=== PATIENT | male | born 1970 | race African-American/Black ===

== ENCOUNTER 2017-04-10 10:16 | Inpatient (IN) | payer OTHER ==
[2017-04-10 10:36] VITALS: BMI 30.8
--- NOTE | 2017-04-10 11:08 | HP ---
COWS - Scale Resting Pulse: 0= [place] 80 or Below Sweatin= Chills/Flushing Restless Observation: 1= Difficult to Sit Still Pupil Size: 1= Pupils >than Normal Bone or Joint Aches: 1= Mild Discomfort Runny Nose/ Eye Tearin= Nasal Congestion GI Upset > 30mins: 2= Nausea/Diarrhea Tremor Observation: 1= Tremor [place], Not Seen Yawning Observation: 1= 1-2x During Session Anxiety or Irritability: 2=Irritable/Anxious Goose Flesh Skin: 3=Piloerection COWS Score: 14 CIWA Score - CIWA Score Nausea/Vomitin Muscle Tremors: 3 Anxiety: 3 Agitation: 3 Paroxysmal Sweats: 3 Orientation: 0-Oriented Tacttile Disturbances: 0-None Auditory Disturbances: 0-None Visual Disturbances: 0-None Headache: 1-Very Mild CIWA-Ar Total Score: 16 Admission [facility] Chief Complaint: alcohol and heroin withdrawal sx Allergies/Adverse Reactions: Allergies Allergy/AdvReac Type Severity Reaction Status Date / Time No Known Allergies Allergy Verified 04/10/17 10:54 History of Present Illness: 46 yo m with h/o chronic alcoholism and opipod use diorder reports withdrwal sx when he deos not use requesting inpatiet tdetoxifcation. PMHX HTN not taking meds, no h/o Seziures or DTS, no SI at thsi teim, reports thirst, depression anxniety and insomnia and recent wt loss. Exam Limitations: No Limitations - Ebola screening Have you traveled outside of the country in the last 21 days: No Have you had contact with anyone from an Ebola affected area: No Have you been sick,other than usual withdrawal symptoms: No Do you have a fever: No - Review of Systems Constitutional: Chills, Diaphoresis, Night Sweats, Unintentional Wgt. Loss EENT: reports: Nose Congestion Respiratory: reports: Cough (smokers) Cardiac: reports: No Symptoms Reported GI: reports: Diarrhea, Nausea, Poor Appetite, Poor Fluid Intake, Indigestion, Abdominal cramping : reports: No Symptoms Reported Musculoskeletal: reports: Back Pain (withdrawal sx), Muscle Pain Integumentary: reports: Flushing, Rash (jock itch), Sweating Neuro: reports: Headache, Numbness, Paresthesia, Tremors, Weakness Endocrine: reports: Increased Thirst Hematology: reports: No Symptoms Reported Psychiatric: reports: Judgement Intact, Mood/Affect Appropiate, Orientated x3, Anxious, Depressed Other Systems: Reviewed and Negative Patient History - Patient Medical History Hx Anemia: No Hx Asthma: No Hx Chronic Obstructive Pulmonary Disease (COPD): No Hx Cancer: No Hx Cardiac Disorders: No Hx Congestive Heart Failure: No Hx Hypertension: Yes (NON COMPLIANT WITH MEDS.) Hx Hypercholesterolemia: No Hx Pacemaker: No HX Cerebrovascular Accident: No Hx Seizures: No Hx Diabetes: No Hx Gastrointestinal Disorders: No Hx Liver Disease: No Hx Genitourinary Disorders: No Hx Sexually Transmitted Disorders: No Hx Renal Disease (ESRD): No Hx Thyroid Disease: No Hx Human Immunodeficiency Virus (HIV): No Hx Hepatitis C: No Hx Depression: Yes Hx Suicide Attempt: No Hx Bipolar Disorder: No Hx Schizophrenia: No - Patient Surgical History Past Surgical History: No Anesthesia Reaction: No - PPD History Previous Implant?: Yes Documented Results: Negative w/o proof Implanted On Prior [facility] Admission?: No PPD to be Administered?: Yes - Reproductive History Patient is a Female of Child Bearing Age (11 -55 yrs old): No Patient : No - Smoking Cessation Smoking history: Current every day smoker Have you smoked in the past 12 months: Yes Aproximately how many cigarettes per day: 5 Hx Chewing Tobacco Use: No Initiated information on smoking cessation: Yes 'Breaking Loose' booklet given: 04/10/17 - Substance & Tx. History Hx Alcohol Use: Yes Hx Substance Use: Yes Substance Use Type: Alcohol, Heroin, Marijuana, Opiates Hx Substance Use Treatment: Yes ([facility], 2 months ago) - Substances Abused Heroin Route: Inhalation Frequency: Daily Amount used: 2 BAGS Age of first use: 17 Date of Last Use: 04/09/17 Alcohol Route: Oral Frequency: Daily Amount used: 1 PINT VODKA Age of first use: 10 Date of Last Use: 04/09/17 Crack Route: Smoking Frequency: Daily Amount used: 10 VIALS Age of first use: 11 Date of Last Use: 04/09/17 Family Disease History - Family Disease History Family History: Denies Admission Physical Exam BHS - Vital Signs Vital Signs: Vital Signs - 24 hr 04/10/17 10:25 Temperature 96.7 F L Pulse Rate 71 Respiratory 18 Rate Blood Pressure 150/84 - Physical General Appearance: Yes: Nourished, Appropriately Dressed, Disheveled, Mild Distress, Tremorous, Irritable, Sweating, Anxious HEENTM: Yes: EOMI, Hearing grossly Normal, Normocephalic, Normal Voice, LACHO, Pharynx Normal, Nasal Congestion, Rhinorrhea Respiratory: Yes: Within Normal Limits, Chest Non-Tender, Lungs Clear, Normal Breath Sounds, No Respiratory Distress, No Accessory Muscle Use Neck: Yes: Within Normal Limits, No masses,lesions,Nodules, Supple, Trachea in good position Breast: Yes: Breast Exam Deferred Cardiology: Yes: Within Normal Limits, Regular Rhythm, Regular Rate, S1, S2 Abdominal: Yes: Within Normal Limits, Normal Bowel Sounds, Non Tender, Flat, Soft, Increased Bowel Sounds Genitourinary: Yes: Within Normal Limits Back: Yes: Within Normal Limits, Normal Inspection Musculoskeletal: Yes: full range of Motion, Gait Steady, Pelvis Stable Extremities: Yes: Normal Capillary Refill, Normal Range of Motion, Non-Tender, Tremors 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, Fully Oriented, Alert, Motor Strength 5/5, Normal Response, Depressed Affect Integumentary: Yes: Normal Color, Warm, Diaphoresis, Moist, Rash (jock itch) Lymphatic: Yes: Within Normal Limits - Addiitonal Findings: withdrawal sx - Diagnostic (1) Alcohol dependence with uncomplicated withdrawal Current Visit: Yes Status: Acute (2) Opioid dependence with withdrawal Current Visit: Yes Status: Acute (3) Nicotine dependence Current Visit: Yes Status: Acute (4) Cocaine dependence Current Visit: Yes Status: Acute (5) Marijuana abuse Current Visit: Yes Status: Acute (6) Essential (primary) hypertension Current Visit: Yes Status: Acute (7) Dehydration Current Visit: Yes Status: Acute (8) Depression Current Visit: Yes Status: Acute (9) Jock itch Current Visit: Yes Status: Acute Cleared for Admission [facility] - Detox or Rehab [facility] Level of Care: Medically Managed Detox Regimen/Protocol: Methadone/Librium [facility] Breath Alcohol Content Breath Alcohol Content: 0 Urine Drug Screen - Results Drug Screen Negative: No Urine Drug Screen Results: THC-Marijuana, CECE-Cocaine, BZO-Benzodiazepines
[2017-04-10] MEDS ORDERED: hydrOXYzine PAMOATE 50 MG CAPSULE (FP) PO PRN (11:10)
[2017-04-10] MEDS ORDERED: MAGNESIUM CITRATE 300 ML BOTTLE PO PRN (11:10)
[2017-04-10] MEDS ORDERED: ACETAMINOPHEN 325 MG TABLET (FP) PO PRN (11:10)
[2017-04-10] MEDS ORDERED: IBUPROFEN 400 MG TABLET (FP) PO PRN (11:10)
[2017-04-10] MEDS ORDERED: MAG HYDROX/AL HYDROX/SIMETH 30 ML UNIT-DOSE CUP PO PRN (11:10)
[2017-04-10] MEDS ORDERED: MENTHOL/PHENOL 1 EACH UD MM PRN (11:10)
[2017-04-10] MEDS ORDERED: P-EPHED 60MG/TRIPROLIDI 2.5MG TABLET PO PRN (11:10)
[2017-04-10] MEDS ORDERED: MAGNESIUM HYDROX 2400MG/30ML ORAL SUSPENSION 30 ML CUP PO PRN (11:10)
[2017-04-10] MEDS ORDERED: chlordiazePOXIDE HCL 25 MG CAPSULE PO PRN (11:10)
[2017-04-10] MEDS ORDERED: LOPERAMIDE HCL 2 MG CAPSULE PO PRN (11:10)
[2017-04-10] MEDS ORDERED: NICOTINE POLACRILEX 2 MG GUM BUC PRN (11:10)
[2017-04-10] MEDS ORDERED: chlordiazePOXIDE HCL 25 MG CAPSULE PO ONE (11:42)
[2017-04-10] MEDS ORDERED: METHADONE HCL 10 MG TABLET (FOR DETOX USE ONLY) PO ONE ×2 (11:43→23:00)
[2017-04-10 13:18] LABS: HEMATOCRIT 38.2 % (35.4-49); HEMOGLOBIN 12.4 GM/dL (11.7-16.9); MCHC 32.4 g/dl (32.0-35.9); MEAN CELL VOLUME 95.5 fl (80-96); MEAN PLT VOLUME 9.3 fl (7.5-11.1); PLATELET COUNT 327 K/MM3 (134-434); RDW 13.9 % (11.9-15.9); WHITE BLOOD COUNT 4.9 K/mm3 (4.0-10.0)
--- NOTE | 2017-04-10 13:18 | CONSULT ---
[facility] Psychiatric Consult - Data Date of interview: 04/10/17 Admission source: [facility] Identifying data: First admission to [facility] for this 46 y/o AA male seeking detox treatment on for heroin,cocaine,marihuana and alcohol dependence.Patient is single,a father of one,domiciled,unemployed and supported on food stamps. Substance Abuse History: Confirmed by patient in this session.See details in current [facility] report : Smoking history: Current every day smoker. Have you smoked in the past 12 months: Yes. Aproximately how many cigarettes per day: 5. Hx Chewing Tobacco Use: No. Initiated information on smoking cessation: Yes. 'Breaking Loose' booklet given: 04/10/17. - Substance & Tx. History. Hx Alcohol Use: Yes. Hx Substance Use: Yes. Substance Use Type: Alcohol, Heroin, Marijuana, Opiates. Hx Substance Use Treatment: Yes ([facility], 2 months ago). - Substances Abused. Heroin. Route: Inhalation. Frequency: Daily. Amount used: 2 BAGS. Age of first use: 17. Date of Last Use: 04/09/17. Alcohol. Route: Oral. Frequency: Daily. Amount used: 1 PINT VODKA. Age of first use: 10. Date of Last Use: 04/09/17. Crack. Route: Smoking. Frequency: Daily. Amount used: 10 VIALS. Age of first use: 11. Date of Last Use: 04/09/17 Medical History: Hypertension. Psychiatric History: Patient denies. Physical/Sexual Abuse/Trauma History: Patient denies. Additional Comment: Urine Drug Screen Results: THC-Marijuana, CECE-Cocaine, BZO- Benzodiazepines.Noted. Mental Status Exam - Mental Status Exam Alert and Oriented to: Time, Place, Person Cognitive Function: Good Patient Appearance: Well Groomed Mood: Hopeful, Euthymic Affect: Appropriate, Normal Range Patient Behavior: Fatigued, Appropriate, Cooperative Speech Pattern: Clear, Appropriate Voice Loudness: Normal Thought Process: Intact, Goal Oriented Thought Disorder: Not Present Hallucinations: Denies Suicidal Ideation: Denies Homicidal Ideation: Denies Insight/Judgement: Poor Sleep: Well Appetite: Good Muscle strength/Tone: Normal Gait/Station: Normal Psychiatric Findings - Problem List ([place] 1, 2,3) (1) Opioid dependence with withdrawal Current Visit: Yes Status: Acute (2) Alcohol dependence with uncomplicated withdrawal Current Visit: Yes Status: Acute (3) Cocaine dependence Current Visit: Yes Status: Acute (4) Marijuana abuse Current Visit: Yes Status: Acute (5) Nicotine dependence Current Visit: Yes Status: Acute - Initial Treatment Plan Initial Treatment Plan: Psychoeducation and support.Detoxification protocol in effect.Orientation to unit.Daily monitoring of clinical course.
[2017-04-10 13:30] LABS: CHLORIDE 105 mmol/L (98-107); SODIUM 140 mmol/L (136-145)
--- NOTE | 2017-04-10 13:41 | EKG ---
Test Reason : Blood Pressure : / mmHG Vent. Rate : 065 BPM Atrial Rate : 065 BPM P-R Int : 166 ms QRS Dur : 102 ms QT Int : 408 ms P-R-T Axes : 073 043 -43 degrees QTc Int : 424 ms NORMAL SINUS RHYTHM SEPTAL INFARCT , AGE UNDETERMINED T WAVE ABNORMALITY, CONSIDER INFERIOR ISCHEMIA ABNORMAL ECG NO PREVIOUS ECGS AVAILABLE Confirmed by MD PHIL, PATEL ([id number]) on 04/10/2017 1:41:22 PM Referred By: Confirmed By:PATEL VILLARREAL MD
[2017-04-10] MEDS: amLODIPine BESYLATE 5 MG TABLET (FP) PO SCH (14:18)
[2017-04-10] MEDS: NICOTINE 14 MG/24 HOURS TOPICAL PATCH TD SCH (14:18)
[2017-04-10] MEDS: CLOTRIMAZOLE/BETAMET DIPROP 15 GM TUBE TP SCH ×2 (14:18→22:04)
[2017-04-10] MEDS: cloNIDine HCL 0.1 MG TABLET PO SCH ×2 (14:21→22:05)
[2017-04-10 15:19] LABS: ALBUMIN 3.9 g/dl (3.4-5.0); ALK PHOS 100 U/L (45-117); ANION GAP 7 (8-16); BILIRUBIN,TOTAL 0.7 mg/dL (0.2-1.0); BLOOD UREA NITROGEN 11 mg/dL (7-18); CALCIUM 8.9 mg/dL (8.5-10.1); CO2 28 mmol/L (21-32); CREATININE 1.1 mg/dL (0.7-1.3); GLUCOSE,RANDOM 113 mg/dL (74-106); SGPT/ALT 28 U/L (12-78); TOT PROT 7.6 g/dl (6.4-8.2)
[2017-04-10 15:21] LABS: POTASSIUM 4.1 mmol/L (3.5-5.1)
[2017-04-10 16:53] LABS: URINE APPEARANCE CLEAR; URINE BILIRUBIN NEGATIVE (NEGATIVE); URINE BLOOD NEGATIVE (NEGATIVE); URINE COLOR LTYELLOW; URINE GLUCOSE (UA) NEGATIVE (NEGATIVE); URINE KETONE NEGATIVE (NEGATIVE); URINE LEUK ESTERASE NEGATIVE (NEGATIVE); URINE NITRITE NEGATIVE (NEGATIVE); URINE PROTEIN NEGATIVE (NEGATIVE); URINE UROBILINOGEN NEGATIVE mg/dL (0.2-1.0)
[2017-04-10 17:13] LABS: SGOT/AST 27 U/L (15-37)
[2017-04-10] MEDS: chlordiazePOXIDE HCL 25 MG CAPSULE PO SCH ×2 (19:59→22:04)
[2017-04-10] MEDS: THIAMINE HCL 100 MG TABLET (FP) PO SCH (22:04)
[2017-04-11] MEDS: chlordiazePOXIDE HCL 25 MG CAPSULE PO SCH ×5 (05:52→23:42)
[2017-04-11] MEDS ORDERED: METHADONE HCL 10 MG TABLET (FOR DETOX USE ONLY) PO SCH (10:00)
[2017-04-11] MEDS: PRENATAL VITAMINS W/ FOLIC ACID TABLET (FP) PO SCH (10:11)
[2017-04-11] MEDS: amLODIPine BESYLATE 5 MG TABLET (FP) PO SCH (10:11)
[2017-04-11] MEDS: cloNIDine HCL 0.1 MG TABLET PO SCH ×2 (10:11→22:42)
[2017-04-11] MEDS: NICOTINE 14 MG/24 HOURS TOPICAL PATCH TD SCH (10:11)
[2017-04-11] MEDS: CLOTRIMAZOLE/BETAMET DIPROP 15 GM TUBE TP SCH ×2 (10:11→22:43)
--- NOTE | 2017-04-11 10:24 | EKG ---
Test Reason : Blood Pressure : / mmHG Vent. Rate : 069 BPM Atrial Rate : 069 BPM P-R Int : 172 ms QRS Dur : 082 ms QT Int : 374 ms P-R-T Axes : 072 039 -05 degrees QTc Int : 400 ms NORMAL SINUS RHYTHM SEPTAL INFARCT (CITED ON OR BEFORE 10-APR-2017) ABNORMAL ECG WHEN COMPARED WITH ECG OF 10-APR-2017 13:25, NO SIGNIFICANT CHANGE WAS FOUND Confirmed by FILIPE MARCOS MD ([id number]) on 04/11/2017 10:24:23 AM Referred By: Confirmed By:FILIPE MARCOS MD
--- NOTE | 2017-04-11 10:41 | PN ---
[facility] CIWA - CIWA Score Nausea/Vomitin-No Nausea/No Vomiting Muscle Tremors: 4-Moderate,w/Arms Extend Anxiety: 4-Mod. Anxious/Guarded Agitation: 4-Moderately Restless Paroxysmal Sweats: 1-Minimal Palms Moist Orientation: 0-Oriented Tacttile Disturbances: 3-Moderate Itch/Numb/Burn Auditory Disturbances: 0-None Visual Disturbances: 0-None Headache: 0-None Present CIWA-Ar Total Score: 16 BHS COWS - Scale Resting Pulse: 0= [place] 80 or Below Sweatin= Chills/Flushing Restless Observation: 3= Extraneous Movement Pupil Size: 0= Normal to Room Light Bone or Joint Aches: 4=Acute Joint/Muscle Pain Runny Nose/ Eye Tearin= Nasal Congestion GI Upset > 30mins: 1= Stomach Cramp Tremor Observation of Outstretched Hands: 2= Slight Tremor Visible Yawning Observation: 1= 1-2x During Session Anxiety or Irritability: 2=Irritable/Anxious Goose Flesh Skin: 0=Smooth Skin COWS Score: 15 [facility] Progress Note (SOAP) Subjective: ANXIETY,SWEATS,IRRITABILITY,FATIGUE,INTERMITTENT SLEP. Objective: 04/11/17 10:40 Vital Signs Temperature 98.1 F 04/11/17 09:04 Pulse Rate 78 04/11/17 09:04 Respiratory Rate 18 04/11/17 09:04 Blood Pressure 144/84 04/11/17 09:04 O2 Sat by Pulse Oximetry (%) Laboratory Last Values WBC 4.9 K/mm3 (4.0-10.0) 04/10/17 11:50 RBC 4.00 M/mm3 (4.00-5.60) 04/10/17 11:50 Hgb 12.4 GM/dL (11.7-16.9) 04/10/17 11:50 Hct 38.2 % (35.4-49) 04/10/17 11:50 MCV 95.5 fl (80-96) 04/10/17 11:50 MCH 31.0 pg (25.7-33.7) 04/10/17 11:50 MCHC 32.4 g/dl (32.0-35.9) 04/10/17 11:50 RDW 13.9 % (11.9-15.9) 04/10/17 11:50 Plt Count 327 K/MM3 (134-434) 04/10/17 11:50 MPV 9.3 fl (7.5-11.1) 04/10/17 11:50 Sodium 140 mmol/L (136-145) 04/10/17 11:50 Potassium 4.1 mmol/L (3.5-5.1) 04/10/17 11:50 Chloride 105 mmol/L (98-107) 04/10/17 11:50 Carbon Dioxide 28 mmol/L (21-32) 04/10/17 11:50 Anion Gap 7 (8-16) L 04/10/17 11:50 BUN 11 mg/dL (7-18) 04/10/17 11:50 Creatinine 1.1 mg/dL (0.7-1.3) 04/10/17 11:50 Creat Clearance w eGFR > 60 (>60) 04/10/17 11:50 Random Glucose 113 mg/dL (74-106) H 04/10/17 11:50 Calcium 8.9 mg/dL (8.5-10.1) 04/10/17 11:50 Total Bilirubin 0.7 mg/dL (0.2-1.0) 04/10/17 11:50 AST 27 U/L (15-37) 04/10/17 11:50 ALT 28 U/L (12-78) 04/10/17 11:50 Alkaline Phosphatase 100 U/L (45-117) 04/10/17 11:50 Total Protein 7.6 g/dl (6.4-8.2) 04/10/17 11:50 Albumin 3.9 g/dl (3.4-5.0) 04/10/17 11:50 Urine Color Ltyellow 04/10/17 15:30 Urine Appearance Clear 04/10/17 15:30 Urine pH 5.0 (5.0-8.0) 04/10/17 15:30 Ur Specific [place] 1.017 (1.001-1.035) 04/10/17 15:30 Urine Protein Negative (NEGATIVE) 04/10/17 15:30 Urine Glucose (UA) Negative (NEGATIVE) 04/10/17 15:30 Urine Ketones Negative (NEGATIVE) 04/10/17 15:30 Urine Blood Negative (NEGATIVE) 04/10/17 15:30 Urine Nitrite Negative (NEGATIVE) 04/10/17 15:30 Urine Bilirubin Negative (NEGATIVE) 04/10/17 15:30 Urine Urobilinogen Negative mg/dL (0.2-1.0) 04/10/17 15:30 Ur Leukocyte Esterase Negative (NEGATIVE) 04/10/17 15:30 RPR Titer Nonreactive (NONREACTIVE) 04/10/17 11:50 Hepatitis C Antibody <0.1 s/co ratio (0.0-0.9) 04/10/17 11:50 Assessment: 04/11/17 10:40 WITHDRAWAL SX Plan: CONTINUE DETOX
[2017-04-11] MEDS: THIAMINE HCL 100 MG TABLET (FP) PO SCH (22:43)
[2017-04-12] MEDS: guaiFENesin/D-METHORPHAN HB 10 ML UNIT-DOSE CUPS PO PRN ×3 (00:34→22:09)
[2017-04-12] MEDS: chlordiazePOXIDE HCL 25 MG CAPSULE PO SCH ×2 (05:34→10:25)
[2017-04-12] MEDS ORDERED: METHADONE HCL 5 MG TABLET (FOR DETOX USE ONLY) PO SCH (10:00)
[2017-04-12] MEDS: amLODIPine BESYLATE 5 MG TABLET (FP) PO SCH (10:23)
[2017-04-12] MEDS: PRENATAL VITAMINS W/ FOLIC ACID TABLET (FP) PO SCH (10:23)
[2017-04-12] MEDS: NICOTINE 14 MG/24 HOURS TOPICAL PATCH TD SCH (10:23)
[2017-04-12] MEDS: cloNIDine HCL 0.1 MG TABLET PO SCH ×2 (10:23→22:07)
[2017-04-12] MEDS: CLOTRIMAZOLE/BETAMET DIPROP 15 GM TUBE TP SCH ×2 (10:23→22:07)
[2017-04-12 11:48] LABS: SICKLE CELL SCREEN NEGATIVE (NEGATIVE)
--- NOTE | 2017-04-12 12:04 | PN ---
[facility] CIWA - CIWA Score Nausea/Vomitin-No Nausea/No Vomiting Muscle Tremors: 4-Moderate,w/Arms Extend Anxiety: 4-Mod. Anxious/Guarded Agitation: 4-Moderately Restless Paroxysmal Sweats: 1-Minimal Palms Moist Orientation: 0-Oriented Tacttile Disturbances: 3-Moderate Itch/Numb/Burn Auditory Disturbances: 0-None Visual Disturbances: 0-None Headache: 0-None Present CIWA-Ar Total Score: 16 S COWS - Scale Resting Pulse: 0= [place] 80 or Below Sweatin= Chills/Flushing Restless Observation: 3= Extraneous Movement Pupil Size: 2= Moderately Dilated Bone or Joint Aches: 4=Acute Joint/Muscle Pain Runny Nose/ Eye Tearin= None GI Upset > 30mins: 0= None Tremor Observation of Outstretched Hands: 1= Tremor [place], Not Seen Yawning Observation: 1= 1-2x During Session Anxiety or Irritability: 2=Irritable/Anxious Goose Flesh Skin: 0=Smooth Skin COWS Score: 14 S Progress Note (SOAP) Subjective: ANXIETY,SWEATS,FATIGUE. Objective: 04/12/17 12:06 Vital Signs Temperature 98.2 F 04/12/17 09:39 Pulse Rate 69 04/12/17 09:39 Respiratory Rate 18 04/12/17 09:39 Blood Pressure 150/97 04/12/17 09:39 O2 Sat by Pulse Oximetry (%) Laboratory Last Values WBC 4.9 K/mm3 (4.0-10.0) 04/10/17 11:50 RBC 4.00 M/mm3 (4.00-5.60) 04/10/17 11:50 Hgb 12.4 GM/dL (11.7-16.9) 04/10/17 11:50 Hct 38.2 % (35.4-49) 04/10/17 11:50 MCV 95.5 fl (80-96) 04/10/17 11:50 MCH 31.0 pg (25.7-33.7) 04/10/17 11:50 MCHC 32.4 g/dl (32.0-35.9) 04/10/17 11:50 RDW 13.9 % (11.9-15.9) 04/10/17 11:50 Plt Count 327 K/MM3 (134-434) 04/10/17 11:50 MPV 9.3 fl (7.5-11.1) 04/10/17 11:50 Sickle Cell Screen Negative (NEGATIVE) 04/10/17 11:50 Sodium 140 mmol/L (136-145) 04/10/17 11:50 Potassium 4.1 mmol/L (3.5-5.1) 04/10/17 11:50 Chloride 105 mmol/L (98-107) 04/10/17 11:50 Carbon Dioxide 28 mmol/L (21-32) 04/10/17 11:50 Anion Gap 7 (8-16) L 04/10/17 11:50 BUN 11 mg/dL (7-18) 04/10/17 11:50 Creatinine 1.1 mg/dL (0.7-1.3) 04/10/17 11:50 Creat Clearance w eGFR > 60 (>60) 04/10/17 11:50 Random Glucose 113 mg/dL (74-106) H 04/10/17 11:50 Calcium 8.9 mg/dL (8.5-10.1) 04/10/17 11:50 Total Bilirubin 0.7 mg/dL (0.2-1.0) 04/10/17 11:50 AST 27 U/L (15-37) 04/10/17 11:50 ALT 28 U/L (12-78) 04/10/17 11:50 Alkaline Phosphatase 100 U/L (45-117) 04/10/17 11:50 Total Protein 7.6 g/dl (6.4-8.2) 04/10/17 11:50 Albumin 3.9 g/dl (3.4-5.0) 04/10/17 11:50 Urine Color Ltyellow 04/10/17 15:30 Urine Appearance Clear 04/10/17 15:30 Urine pH 5.0 (5.0-8.0) 04/10/17 15:30 Ur Specific [place] 1.017 (1.001-1.035) 04/10/17 15:30 Urine Protein Negative (NEGATIVE) 04/10/17 15:30 Urine Glucose (UA) Negative (NEGATIVE) 04/10/17 15:30 Urine Ketones Negative (NEGATIVE) 04/10/17 15:30 Urine Blood Negative (NEGATIVE) 04/10/17 15:30 Urine Nitrite Negative (NEGATIVE) 04/10/17 15:30 Urine Bilirubin Negative (NEGATIVE) 04/10/17 15:30 Urine Urobilinogen Negative mg/dL (0.2-1.0) 04/10/17 15:30 Ur Leukocyte Esterase Negative (NEGATIVE) 04/10/17 15:30 RPR Titer Nonreactive (NONREACTIVE) 04/10/17 11:50 Hepatitis C Antibody <0.1 s/co ratio (0.0-0.9) 04/10/17 11:50 Assessment: 04/12/17 12:07 WITHDRAWAL SX Plan: CONTINUE DETOX INCREASE PO FLUIDS.
[2017-04-12] MEDS: chlordiazePOXIDE 5 MG CAPSULE PO SCH ×2 (17:43→22:22)
[2017-04-12] MEDS: THIAMINE HCL 100 MG TABLET (FP) PO SCH (22:07)
[2017-04-13] MEDS: guaiFENesin/D-METHORPHAN HB 10 ML UNIT-DOSE CUPS PO PRN (05:56)
[2017-04-13] MEDS: chlordiazePOXIDE 5 MG CAPSULE PO SCH (06:12)
[2017-04-13 06:17] VITALS: BP 123/78; PULSE 62; TEMP 97.7
--- NOTE | 2017-04-13 13:44 | DS ---
[facility] Detox Discharge Summary Admission Date: 04/10/17 Discharge Date: 04/13/17 - History Present History: Alcohol Dependence, Opioid Dependence Additional Comments: PT SIGNED OUT AMA. PT STATES "I DRINK AND I'M GOOD NOW. I DON'T REALLY USE HEROIN LIKE THAT. I NEED TO LEAVE". ALERT O X 3. NAD. Pertinent Past History: HTN - Physical Exam Results Vital Signs: Vital Signs Temperature 97.7 F 04/13/17 06:16 Pulse Rate 62 04/13/17 06:16 Respiratory Rate 18 04/13/17 06:16 Blood Pressure 123/78 04/13/17 06:16 O2 Sat by Pulse Oximetry (%) Pertinent Admission Physical Exam Findings: WITHDRAWAL SX Laboratory Last Values WBC 4.9 K/mm3 (4.0-10.0) 04/10/17 11:50 RBC 4.00 M/mm3 (4.00-5.60) 04/10/17 11:50 Hgb 12.4 GM/dL (11.7-16.9) 04/10/17 11:50 Hct 38.2 % (35.4-49) 04/10/17 11:50 MCV 95.5 fl (80-96) 04/10/17 11:50 MCH 31.0 pg (25.7-33.7) 04/10/17 11:50 MCHC 32.4 g/dl (32.0-35.9) 04/10/17 11:50 RDW 13.9 % (11.9-15.9) 04/10/17 11:50 Plt Count 327 K/MM3 (134-434) 04/10/17 11:50 MPV 9.3 fl (7.5-11.1) 04/10/17 11:50 Sickle Cell Screen Negative (NEGATIVE) 04/10/17 11:50 Sodium 140 mmol/L (136-145) 04/10/17 11:50 Potassium 4.1 mmol/L (3.5-5.1) 04/10/17 11:50 Chloride 105 mmol/L (98-107) 04/10/17 11:50 Carbon Dioxide 28 mmol/L (21-32) 04/10/17 11:50 Anion Gap 7 (8-16) L 04/10/17 11:50 BUN 11 mg/dL (7-18) 04/10/17 11:50 Creatinine 1.1 mg/dL (0.7-1.3) 04/10/17 11:50 Creat Clearance w eGFR > 60 (>60) 04/10/17 11:50 Random Glucose 113 mg/dL (74-106) H 04/10/17 11:50 Calcium 8.9 mg/dL (8.5-10.1) 04/10/17 11:50 Total Bilirubin 0.7 mg/dL (0.2-1.0) 04/10/17 11:50 AST 27 U/L (15-37) 04/10/17 11:50 ALT 28 U/L (12-78) 04/10/17 11:50 Alkaline Phosphatase 100 U/L (45-117) 04/10/17 11:50 Total Protein 7.6 g/dl (6.4-8.2) 04/10/17 11:50 Albumin 3.9 g/dl (3.4-5.0) 04/10/17 11:50 Urine Color Ltyellow 04/10/17 15:30 Urine Appearance Clear 04/10/17 15:30 Urine pH 5.0 (5.0-8.0) 04/10/17 15:30 Ur Specific [place] 1.017 (1.001-1.035) 04/10/17 15:30 Urine Protein Negative (NEGATIVE) 04/10/17 15:30 Urine Glucose (UA) Negative (NEGATIVE) 04/10/17 15:30 Urine Ketones Negative (NEGATIVE) 04/10/17 15:30 Urine Blood Negative (NEGATIVE) 04/10/17 15:30 Urine Nitrite Negative (NEGATIVE) 04/10/17 15:30 Urine Bilirubin Negative (NEGATIVE) 04/10/17 15:30 Urine Urobilinogen Negative mg/dL (0.2-1.0) 04/10/17 15:30 Ur Leukocyte Esterase Negative (NEGATIVE) 04/10/17 15:30 RPR Titer Nonreactive (NONREACTIVE) 04/10/17 11:50 Hepatitis C Antibody <0.1 s/co ratio (0.0-0.9) 04/10/17 11:50 - Treatment Hospital Course: Discharged Condition Good - Medication Discharge Medications: Ambulatory Orders Amlodipine Besylate [Norvasc -] 5 mg PO DAILY 04/10/17 - Diagnosis (1) Alcohol dependence with uncomplicated withdrawal Status: Acute (2) Essential (primary) hypertension Status: Chronic (3) Nicotine dependence Status: Acute Qualifiers: Nicotine product type: cigarettes Substance use status: in withdrawal Qualified Code(s): F17.213 - Nicotine dependence, cigarettes, with withdrawal (4) Opioid dependence with withdrawal Status: Acute - AMA Did Patient Leave Against Medical Advice: Yes (AMA)
[2017-04-13] MEDS ORDERED: chlordiazePOXIDE HCL 10 MG CAPSULE PO SCH (17:00)
[2017-04-14] MEDS ORDERED: METHADONE HCL 10 MG TABLET (FOR DETOX USE ONLY) PO SCH (10:00)
[2017-04-15] MEDS ORDERED: METHADONE HCL 5 MG TABLET (FOR DETOX USE ONLY) PO SCH (06:00)
== END 2017-04-13 09:04 | disposition left against medical advice (07) | DRG 385 ==
LOC: YASAS 10:16 → Y3N 11:34
PROVIDERS: ADMIT Internal Medicine; ATTEND Internal Medicine
PROC: HZ2ZZZZ Detoxification Services for Substance Abuse Treatment (ICD-10-PCS; principal; 2017-04-10)
DX: L29.8 Other pruritus (principal); F11.23 Opioid dependence with withdrawal; F10.230 Alcohol dependence with withdrawal, uncomplicated; F14.20 Cocaine dependence, uncomplicated; F17.213 Nicotine dependence, cigarettes, with withdrawal; F12.10 Cannabis abuse, uncomplicated; F32.9 Major depressive disorder, single episode, unspecified; I10 Essential (primary) hypertension; E86.0 Dehydration; B35.6 Tinea cruris
CPT/HCPCS: 36415; 80053; 81003; 85027; 85660; 86593; 86803; 93005; 93010; J0735